=== PATIENT | female | born 1940 | race Caucasian/White ===

== ENCOUNTER → 2024-05-13 11:01 | Outpatient (REF) | payer MEDICARE, BC, SELFPAY | LOC: HWRCS 11:01 | PROVIDERS: ATTENDING PHYSICIAN Internal Medicine Cardiovascular Disease; FAMILY PHYSICIAN Physician Assistant Medical | DX: R55 Syncope and collapse (principal); R00.2 Palpitations | CPT/HCPCS: 93306 ==